=== PATIENT | male | born 1990 | race Caucasian/White ===

== ENCOUNTER 2019-02-27 08:49 | Day surgery (SDC) | payer BC ==
[2019-02-26 15:32] VITALS: BMI 22.4
--- NOTE | 2019-02-27 08:32 | HP ---
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 Exam reveals a hypertrophied papilla in the posterior perianal area. This is tender. There may be a small fistulous tract consistent with his intermittent drainage. He does not give a history of a perirectal abscess spontaneously or drain. ALLERGIES: NONE. SOCIAL HISTORY: Tobacco, none. Alcohol, none. MEDICATIONS: None. PAST SURGICAL HISTORY: Noncontributory. PAST MEDICAL HISTORY: Noncontributory. REVIEW OF SYSTEMS: Ten-point, noncontributory. PHYSICAL EXAMINATION: VITAL SIGNS: 165 pounds, 6 feet tall, blood pressure 107/46, heart rate 56, temperature 97.5 degrees. HEAD, EARS, EYES, NOSE, AND THROAT: Unremarkable. LUNGS: Clear to auscultation. CARDIAC: Regular rate and rhythm without murmur or gallop. ABDOMEN: Soft and nontender. No mass. EXTREMITIES: Unremarkable. RECTAL: Perianal area reveals a hypertrophied papilla posteriorly that is slightly inflamed and has a punctate opening. It is tender on attempts at probing, and I had to abandon that. ASSESSMENT AND PLAN: Hypertrophied papilla with intermittent drainage suggestive of a [id number]. Plan exam under anesthesia. We will plan fistulotomy as indicated. Possibility of a seton was discussed, although I think this would be unlikely. We will proceed tomorrow. Job ID: [id number]
[2019-02-27] MEDS ORDERED: Ondansetron PF 4 MG/2 ML Vial ONE (10:51)
[2019-02-27] MEDS ORDERED: Lidocaine 1% PF 5 ML VIAL ONE (10:51)
[2019-02-27] MEDS ORDERED: PROPOFOL 200 MG/20 ML VIAL ONE (10:51)
[2019-02-27] MEDS ORDERED: ceFOXitin 2 GM/50 ML Duplex BAG ONE (10:59)
[2019-02-27] MEDS ORDERED: Hydrocodone-Acetamin 15 ML UDCUP ONE (10:59)
[2019-02-27] MEDS ORDERED: metroNIDAZOLE 500 MG/100 ML BAG ONE (11:00)
[2019-02-27] MEDS ORDERED: Bupivacaine PF 0.5% 30 ML VIAL ONE ×2 (11:36→11:43)
[2019-02-27] MEDS ORDERED: Lidocaine 1% w/Epinephrine 1:100K 20 ML VIAL ONE ×2 (11:36→11:43)
[2019-02-27] MEDS ORDERED: Isosulfan Blue 50 MG/5 ML VIAL ONE (11:36)
[2019-02-27] MEDS ORDERED: Fentanyl 100 MCG/2 ML VIAL ONE (11:42)
[2019-02-27] MEDS ORDERED: Lidocaine 2% Jelly 5 ML TUBE ONE (11:43)
--- NOTE | 2019-02-27 17:41 | OP ---
DATE OF PROCEDURE: 02/27/2019 PREOPERATIVE DIAGNOSIS: [id number] posteriorly. POSTOPERATIVE DIAGNOSIS: [id number]-[id number]-[id number] posteriorly. PROCEDURE PERFORMED: Exam under anesthesia, fistulotomy, superficial, submucosal. ANESTHESIA: General and local 0.25% Marcaine, 30 mL mixed with 1% Xylocaine with epinephrine 30 mL, 10 mL mixture used. DESCRIPTION OF PROCEDURE: The patient was taken to the operating room, where in dorsal lithotomy position under general anesthesia, perianal area, buttocks, scrotum, and penis were prepared with Betadine and draped in routine fashion. Hill-Hector retractor was inserted in the anus and posterior. There was a hypertrophied papillae. It was cannulated with a left probe, identifying the fistulous tract just beneath the skin and mucosa. Fistulotomy was performed using cautery, and local anesthetic was infiltrated into the skin and subcutaneous tissue. Good hemostasis assured. The patient tolerated the procedure well. Job ID: [id number]
== END 2019-02-27 15:10 | disposition home or self-care (01) ==
LOC: SDC 08:49
PROVIDERS: ATTEND Specialist
PROC: 0DBQ0ZZ Excision of Anus, Open Approach (ICD-10-PCS; principal; 2019-02-27)
DX: K60.3 Anal fistula (principal)
CPT/HCPCS: J0694; J2001; J2405; J2704; J3010; Q9968; S0020